=== PATIENT | female | born 1960 | race Caucasian/White ===

== ENCOUNTER 2017-08-13 13:24 | Inpatient (IN) | payer BC ==
[~2017-08-13] VITALS: Ht 170.2 cm; Wt 65.3 kg
[2017-08-13] MEDS ORDERED: SINGULAIR 110 MG/TAB PO (13:44)
[2017-08-13] MEDS ORDERED: DDAVP TAB0.2 MG PO (13:44)
[2017-08-13] MEDS ORDERED: SYMBICORT AER 160 (13:45)
[2017-08-13 14:36] LABS: BASO % 0.6 % (0.0-2.0); EOS # 0.1 (0.0-0.7); EOS % 1.2 % (0-4.0); GRAN # 4.3 (1.4-6.5); GRAN % 62.3 % (42.2-75.2); HEMATOCRIT 39.1 % (37.0-47.0); HEMOGLOBIN 13.3 g/dl (12.5-16.0); LYMPH # 1.9 (1.2-3.4); LYMPH % 27.8 % (20.0-51.0); MEAN CELL VOLUME 95 fl (80.0-100.0); MEAN CORPUSCULAR HEMOGLOBIN 32 pg (27.0-31.0); MEAN CORPUSCULAR HGB CONC 34 g/dl (33.0-37.0); MEAN PLATELET VOLUME 9.6 fl (7.4-10.4); MONO # 0.5 (0.1-0.6); MONO % 7.8 % (1.7-9.3); PLATELET COUNT 254 K/mm3 (130-400); RED BLOOD COUNT 4.11 M/mm3 (4.10-5.30); REDCELL DISTRIBUTION WIDTH-CV 12.7 % (11.5-14.5)
[2017-08-13 14:41] LABS: PROTHROMBIN TIME 11.8 SECONDS (9.7-12.8)
[2017-08-13 14:53] LABS: ALBUMIN 4.1 gm/dL (3.5-5.0); BILIRUBIN,TOTAL 0.8 mg/dL (0.0-1.0); CALCIUM 10.1 mg/dL (8.4-10.2); CREATININE, serum 0.97 mg/dL (0.52-1.25); POTASSIUM 4.1 mmol/L (3.4-5.0); TOTAL PROTEIN 7.7 gm/dL (6.4-8.2)
[2017-08-13 15:08] LABS: TROPONIN-I 0.241 ng/mL (0.000-0.034)
[2017-08-13 17:09] VITALS: BP 115/72; PULSE 78; TEMP 97.8
[2017-08-13 17:17] VITALS: BP 115/72; PULSE 78; TEMP 97.8
[2017-08-13 19:31] VITALS: BP 113/76; PULSE 88; TEMP 98.9
[2017-08-13 23:39] VITALS: BP 94/59; PULSE 61; TEMP 98.8
[2017-08-14] VITALS (7 sets, daily range): BP systolic 93–115; BP diastolic 56–69; PULSE 71–85; TEMP 97.8–98.6
[2017-08-14 07:04] LABS: BASO % 0.6 % (0.0-2.0); EOS # 0.1 (0.0-0.7); EOS % 2.5 % (0-4.0); GRAN # 2.7 (1.4-6.5); HEMOGLOBIN 13.2 g/dl (12.5-16.0); LYMPH % 37.7 % (20.0-51.0); MEAN CELL VOLUME 95 fl (80.0-100.0); MEAN CORPUSCULAR HEMOGLOBIN 32 pg (27.0-31.0); MEAN CORPUSCULAR HGB CONC 34 g/dl (33.0-37.0); MEAN PLATELET VOLUME 9.6 fl (7.4-10.4); MONO # 0.4 (0.1-0.6); PLATELET COUNT 253 K/mm3 (130-400); RED BLOOD COUNT 4.11 M/mm3 (4.10-5.30); REDCELL DISTRIBUTION WIDTH-CV 12.8 % (11.5-14.5)
[2017-08-14 07:17] LABS: CALCIUM 9.4 mg/dL (8.4-10.2); CREATININE, serum 0.67 mg/dL (0.52-1.25); POTASSIUM 4.1 mmol/L (3.4-5.0)
[2017-08-14 07:28] LABS: TROPONIN-I 0.57 ng/mL (0.000-0.034)
[2017-08-14 22:11] LABS: MEAN CELL VOLUME 94 fl (80.0-100.0); MEAN CORPUSCULAR HEMOGLOBIN 32 pg (27.0-31.0); MEAN CORPUSCULAR HGB CONC 34 g/dl (33.0-37.0); MEAN PLATELET VOLUME 9.5 fl (7.4-10.4); PLATELET COUNT 228 K/mm3 (130-400); RED BLOOD COUNT 3.77 M/mm3 (4.10-5.30); REDCELL DISTRIBUTION WIDTH-CV 12.9 % (11.5-14.5)
[2017-08-14 22:20] LABS: HEMATOCRIT 35.5 % (37.0-47.0)
[2017-08-14 22:23] LABS: CALCIUM 9.1 mg/dL (8.4-10.2); CREATININE, serum 0.75 mg/dL (0.52-1.25)
[2017-08-15] VITALS (10 sets, daily range): BP systolic 103–114; BP diastolic 39–81; PULSE 50–77; TEMP 98.3
[2017-08-15 06:27] LABS: BASO # 0.1 (0.0-0.2); BASO % 0.9 % (0.0-2.0); EOS # 0.2 (0.0-0.7); EOS % 2.9 % (0-4.0); GRAN # 2.7 (1.4-6.5); GRAN % 48.3 % (42.2-75.2); HEMATOCRIT 37.4 % (37.0-47.0); HEMOGLOBIN 12.5 g/dl (12.5-16.0); LYMPH # 2.2 (1.2-3.4); LYMPH % 39.5 % (20.0-51.0); MEAN CELL VOLUME 95 fl (80.0-100.0); MEAN CORPUSCULAR HEMOGLOBIN 32 pg (27.0-31.0); MEAN CORPUSCULAR HGB CONC 33 g/dl (33.0-37.0); MEAN PLATELET VOLUME 9.4 fl (7.4-10.4); MONO # 0.5 (0.1-0.6); PLATELET COUNT 237 K/mm3 (130-400); RED BLOOD COUNT 3.92 M/mm3 (4.10-5.30)
[2017-08-15 06:36] LABS: PROTHROMBIN TIME 11.8 SECONDS (9.7-12.8)
[2017-08-15 06:39] LABS: PARTIAL THROMBOPLASTIN TIME 31.5 SECONDS (26.0-37.0)
[2017-08-15 06:40] LABS: CALCIUM 9.2 mg/dL (8.4-10.2); CREATININE, serum 0.7 mg/dL (0.52-1.25); POTASSIUM 3.9 mmol/L (3.4-5.0)
[2017-08-15] MEDS ORDERED: LIPITOR 80MG80 MG PO (12:54)
[2017-08-15] MEDS ORDERED: PLAVIX 75MG TAB75 MG PO (12:54)
[2017-08-15] MEDS ORDERED: IMDUR 30MG30 MG/TAB PO (12:55)
[2017-08-15] MEDS ORDERED: ASPIRIN E.C. 8181 MG PO (12:55)
== END 2017-08-15 14:06 | disposition home or self-care (01) | DRG 282 ==
LOC: COL.ER 13:24 → MEDICAL 17:02
PROVIDERS: Emergency Medicine; Family Medicine; Internal Medicine Interventional Cardiology
PROC: B2111ZZ Fluoroscopy of Multiple Coronary Arteries using Low Osmolar Contrast (ICD-10-PCS; principal; 2017-08-15)
PROC: B2151ZZ Fluoroscopy of Left Heart using Low Osmolar Contrast (ICD-10-PCS; 2017-08-15)
DX: I21.4 Non-ST elevation (NSTEMI) myocardial infarction (principal); R00.2 Palpitations; Z87.891 Personal history of nicotine dependence; I20.1 Angina pectoris with documented spasm
CPT/HCPCS: 99222-AI; 99232-AI; 99239; C1760; C1894; J1650; J2060; J3010; J7030; J7040; Q9967

== ENCOUNTER → 2017-11-17 | Outpatient (CLI) | payer BC ==
[~2017-11-17] MED LIST: ASPIRIN E.C. 8181 MG PO; DDAVP TAB0.2 MG PO; IMDUR 30MG30 MG/TAB PO; LIPITOR 80MG80 MG PO; PLAVIX 75MG TAB75 MG PO; SINGULAIR 110 MG/TAB PO; SYMBICORT AER 160
== END ==
LOC: MC.RAD 08:29
DX: Z12.31 Encounter for screening mammogram for malignant neoplasm of breast (principal)

== ENCOUNTER 2018-10-16 16:33 | Inpatient (IN) | payer BC ==
[2018-10-16] VITALS (182 sets, daily range): BP systolic 100; BP diastolic 80; PULSE 95; TEMP 97.8; O2SAT 93–100
[~2018-10-16] VITALS: Ht 167.6 cm; Wt 55.5 kg
[2018-10-16 16:57] LABS: BASO # 0.1 (0.0-0.2); BASO % 0.6 % (0.0-2.0); EOS # 0.1 (0.0-0.7); EOS % 1.5 % (0-4.0); GRAN # 3.9 (1.4-6.5); GRAN % 47.4 % (42.2-75.2); HEMATOCRIT 38.8 % (37.0-47.0); HEMOGLOBIN 12.9 g/dl (12.5-16.0); LYMPH # 3.5 (1.2-3.4); LYMPH % 41.9 % (20.0-51.0); MEAN CELL VOLUME 94 fl (80.0-100.0); MEAN CORPUSCULAR HEMOGLOBIN 31 pg (27.0-31.0); MEAN CORPUSCULAR HGB CONC 33 g/dl (33.0-37.0); MEAN PLATELET VOLUME 9.7 fl (7.4-10.4); MONO # 0.7 (0.1-0.6); MONO % 8.4 % (1.7-9.3); PLATELET COUNT 216 K/mm3 (130-400); RED BLOOD COUNT 4.12 M/mm3 (4.10-5.30); REDCELL DISTRIBUTION WIDTH-CV 12.8 % (11.5-14.5)
[2018-10-16 17:02] LABS: INR 0.9 (0.8-3.0); PROTHROMBIN TIME 10.9 SECONDS (9.7-12.8)
[2018-10-16 17:05] LABS: PARTIAL THROMBOPLASTIN TIME 28.6 SECONDS (26.0-37.0)
[2018-10-16 17:07] LABS: ALANINE AMINOTRANSFERASE 31 U/L (9-52); ALBUMIN 4.3 gm/dL (3.5-5.0); ALKALINE PHOSPHATASE 95 U/L (50-136); ANION GAP 12 mmol/L (7-16); AST,SGOT 35 U/L (15-37); BILIRUBIN,TOTAL 0.9 mg/dL (0.0-1.0); BLOOD UREA NITROGEN 30 mg/dL (7-17); CALCIUM 9.8 mg/dL (8.4-10.2); CARBON DIOXIDE 21 mmol/L (22-30); CHLORIDE 104 mmol/L (98-107); CREATININE, serum 0.94 (0.52-1.25); GLUCOSE 90 mg/dL (74-106); POTASSIUM 3.7 mmol/L (3.4-5.0); SODIUM 138 mmol/L (137-145); TOTAL PROTEIN 7.3 gm/dL (6.4-8.2)
[2018-10-16 17:43] LABS: TROPONIN-I < 0.012 ng/mL (0.000-0.035)
[2018-10-16] MEDS ORDERED: LIPITOR 80MG80 MG PO (18:45)
[2018-10-16] MEDS ORDERED: ISORDIL TITRADO30 MG PO (18:46)
[2018-10-16] MEDS ORDERED: SINGULAIR 110 MG/TAB PO (18:46)
[2018-10-16] MEDS ORDERED: AMBIEN 5MG TABLE5 MG PO (18:46)
[2018-10-16] MEDS ORDERED: INDERAL 20MG20 MG PO (18:47)
[2018-10-16] MEDS ORDERED: NITROSTAT0.4 MG/TAB SL (18:47)
[2018-10-16 18:54] LABS: MAGNESIUM 1.9 mg/dL (1.6-2.3)
[2018-10-16 19:25] LABS: TSH w REFLEX 1.69 uIU/mL (0.465-4.680)
--- NOTE | 2018-10-16 19:36 | NUR ---
Arrived to the unit via stretcher. Able to self transfer to icu bed without difficulty. Attached to all monitors. HR 90's and A-fib. Currently on cardizem drip at 5 mg/hr. During assessment patient rolled onto side. After rolling patient stated she started to see some "black spots". Denied any dizziness. VS within normal limits. Patient stated it was possibly due to being hungry and not eating since early this morning. Snack provided and hosptitalist notified.
[2018-10-17] VITALS (338 sets, daily range): BP systolic 101–113; BP diastolic 51–81; PULSE 58–98; TEMP 97.6–98.4; O2SAT 84–100
--- NOTE | 2018-10-17 01:41 | NUR ---
HR noted to be mid 50's to 60's while sleeping. Updated hospitalist via telephone. Can hold drip for HR less than 60 and drip placed on hold at this time. Observed patient getting up from bed unassisted. Re-inforced eduction regarding calling nurse prior to getting up unassisted due to fall risk from monitor cords and IV tubing. Patient verbalized understanding. Patient denies any chest pain or dizziness. Will continue to monitor.
[2018-10-17 01:46] LABS: PH 5 (5-8); SQUAMOUS EPITHELIAL 0-2 /hpf; URINE APPEARANCE Clear; URINE BACTERIA None Seen /hpf; URINE BILIRUBIN Negative (NEGATIVE); URINE BLOOD Negative (NEGATIVE); URINE COLOR Straw; URINE GLUCOSE Negative (NEGATIVE); URINE KETONE Negative (NEGATIVE); URINE LEUKOCYTE ESTERASE Negative (NEGATIVE); URINE NITRATE Negative (NEGATIVE); URINE PROTEIN(semi-quant) Negative (NEGATIVE); URINE RBC 0-2 /hpf; URINE UROBILINOGEN Negative (NEGATIVE)
[2018-10-17 01:48] LABS: COLLECTION METHOD CLEAN CATCH
--- NOTE | 2018-10-17 02:29 | NUR ---
Patient observed attempting to stand up from bed unassisted again. Reminded patient again to call prior to getting up from bed. Gait is steady, however patient's feet were tangled in cords when this nurse entered the room. Patient is not confused and is alert and oriented. Assisted onto commode and back to bed. Non-slip socks are utilized. Bed alarm set.
--- NOTE | 2018-10-17 05:30 | NUR ---
Assisted up to commode. Upon returning to bed reported feeling of palpitations, denies any other symptoms along with palpitations. HR 80's and afib, BP stable. Will continue to monitor.
[2018-10-17 05:33] LABS: BASO % 0.5 % (0.0-2.0); EOS # 0.1 (0.0-0.7); EOS % 1.6 % (0-4.0); GRAN # 3.1 (1.4-6.5); GRAN % 49.3 % (42.2-75.2); HEMOGLOBIN 11.6 g/dl (12.5-16.0); LYMPH # 2.5 (1.2-3.4); LYMPH % 40.2 % (20.0-51.0); MEAN CELL VOLUME 96 fl (80.0-100.0); MEAN CORPUSCULAR HEMOGLOBIN 32 pg (27.0-31.0); MEAN CORPUSCULAR HGB CONC 33 g/dl (33.0-37.0); MEAN PLATELET VOLUME 9.9 fl (7.4-10.4); MONO # 0.5 (0.1-0.6); MONO % 8.2 % (1.7-9.3); PLATELET COUNT 181 K/mm3 (130-400); RED BLOOD COUNT 3.67 M/mm3 (4.10-5.30); REDCELL DISTRIBUTION WIDTH-CV 13.1 % (11.5-14.5)
[2018-10-17 05:35] LABS: HEMATOCRIT 35.1 % (37.0-47.0)
[2018-10-17 05:43] LABS: CALCIUM 8.5 mg/dL (8.4-10.2); CREATININE, serum 0.56 (0.52-1.25); POTASSIUM 3.8 mmol/L (3.4-5.0)
[2018-10-17 05:55] LABS: TROPONIN-I 0.095 ng/mL (0.000-0.035)
--- NOTE | 2018-10-17 07:15 | NUR ---
Bedside report received from Zahida Shine on hold at this time. HR 70-80 when at rest. Patient denies complaints of chest pain or SOA at this time. Call light at side.
--- NOTE | 2018-10-17 07:15 | NUR ---
Bedside report given to RADHA Gar. Patient care transfered.
--- NOTE | 2018-10-17 11:21 | NUR ---
SW met with patient and to discuss discharge planning. Patient lives independently in [facility] with her Poli. 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 Patients PCP is Dr Glez and [facility]. Patient does not have any discharge needs at this time however sw will continue to follow.
--- NOTE | 2018-10-17 12:56 | NUR ---
Dr. Laurent here for Cards consult. Orders recieved. Diet orders changed and patient instructed how to order, states understanding.
--- NOTE | 2018-10-17 13:42 | NUR ---
Report given to Maria D GARCIA
--- NOTE | 2018-10-17 13:45 | NUR ---
Report recieved from RADHA Gar. Patient care assumed and she is transferred via WC with all belongings to medical room 357. Patient ambulates with steady gait for transfers and situates self in bed. Call light is provided.
--- NOTE | 2018-10-17 20:10 | NUR ---
Shift assessment complete. Patient in bed, awake. Denies pain. Patient anxious about being "in the fib" per pt statement. Emotional support given. HR 97 on tele, afib. Denies further needs at this time. Will continue to monitor.
--- NOTE | 2018-10-18 03:37 | NUR ---
Patient in bed, sleeping. Awakens to name. Denies pain. Denies further needs at this time. Will continue to monitor.
[2018-10-18 04:24] VITALS: BP 117/82; PULSE 77; TEMP 98.5
[2018-10-18 06:57] LABS: CALCIUM 9.4 mg/dL (8.4-10.2); CREATININE, serum 0.61 (0.52-1.25); POTASSIUM 4.1 mmol/L (3.4-5.0)
--- NOTE | 2018-10-18 07:05 | NUR ---
Report recieved from Lulu GARCIA. Patient resting in bed at this time.
[2018-10-18 07:36] VITALS: BP 111/85; PULSE 71; TEMP 98.4
--- NOTE | 2018-10-18 11:16 | NUR ---
Patient up and showered. IV removed and tele monitor off. Waiting on discharge orders, will review orders when available.
[2018-10-18 11:32] VITALS: BP 102/61; BP 91/54; PULSE 93; TEMP 97.7
[2018-10-18] MEDS ORDERED: LOPRESSOR 225 MG/TAB PO (11:40)
[2018-10-18] MEDS ORDERED: LASIX 20MG TABL20 MG PO (11:41)
[2018-10-18] MEDS ORDERED: ASPIRIN E.C. 8181 MG PO (11:41)
--- NOTE | 2018-10-18 12:02 | NUR ---
Initial visit; Patient thanked [employer] for looking in on her, letting her know of the availability of spiritual care at our hospital.
--- NOTE | 2018-10-18 12:25 | NUR ---
Patient standing at doorway of room, asks nurse what's taking so long. Explained to patient that hospital discharges take some time, papers are printed and ready to review. 1235 Called into room. Patient complains of chest pain that came on suddenly and is resolving. Very anxious, states "I want to get out of here." Denies SOB, dizziness. 1245 Reviewed discharge instructions, medication list, and follow up appointments. Voices understanding, questions answered. Discharged to home with driving.
== END 2018-10-18 12:45 | disposition hospice, home (50) | DRG 281 ==
LOC: COL.ER 16:33 → ICU 18:31 → MEDICAL 10-17 13:54
PROVIDERS: Family Medicine; Nurse Practitioner Family; ADMIT Internal Medicine
DX: I48.91 Unspecified atrial fibrillation (principal); I21.A1 Myocardial infarction type 2; I20.1 Angina pectoris with documented spasm; I25.2 Old myocardial infarction; I08.1 Rheumatic disorders of both mitral and tricuspid valves; I95.9 Hypotension, unspecified; R35.0 Frequency of micturition; Z87.891 Personal history of nicotine dependence; Z82.49 Family history of ischemic heart disease and other diseases of the circulatory system
CPT/HCPCS: 99222-AI; 99239; J1650; J7030

== ENCOUNTER 2018-12-10 17:51 | Emergency (ER) | payer BC ==
[~2018-12-10] VITALS: Ht 167.6 cm; Wt 62.7 kg
[~2018-12-10 17:51] MED LIST changes: +AMBIEN 5MG TABLE5 MG PO; +INDERAL 20MG20 MG PO; +ISORDIL TITRADO30 MG PO; +LASIX 20MG TABL20 MG PO; +LOPRESSOR 225 MG/TAB PO; +NITROSTAT0.4 MG/TAB SL
[2018-12-10 17:59] VITALS: TEMP 97.6
[2018-12-10 18:27] LABS: BASO % 0.3 % (0.0-2.0); EOS # 0.1 (0.0-0.7); EOS % 1.3 % (0-4.0); GRAN # 3.5 (1.4-6.5); GRAN % 50.9 % (42.2-75.2); HEMATOCRIT 38.7 % (37.0-47.0); HEMOGLOBIN 13.1 g/dl (12.5-16.0); LYMPH # 2.7 (1.2-3.4); LYMPH % 39.8 % (20.0-51.0); MEAN CELL VOLUME 94 fl (80.0-100.0); MEAN CORPUSCULAR HEMOGLOBIN 32 pg (27.0-31.0); MEAN CORPUSCULAR HGB CONC 34 g/dl (33.0-37.0); MEAN PLATELET VOLUME 9.6 fl (7.4-10.4); MONO # 0.5 (0.1-0.6); MONO % 7.6 % (1.7-9.3); PLATELET COUNT 238 K/mm3 (130-400); REDCELL DISTRIBUTION WIDTH-CV 12.8 % (11.5-14.5)
[2018-12-10 18:36] LABS: ALANINE AMINOTRANSFERASE 30 U/L (9-52); ALBUMIN 4.5 gm/dL (3.5-5.0); ALKALINE PHOSPHATASE 83 U/L (50-136); ANION GAP 8 mmol/L (7-16); AST,SGOT 37 U/L (15-37); BILIRUBIN,TOTAL 0.9 mg/dL (0.0-1.0); BLOOD UREA NITROGEN 22 mg/dL (7-17); CALCIUM 9.6 mg/dL (8.4-10.2); CARBON DIOXIDE 25 mmol/L (22-30); CHLORIDE 105 mmol/L (98-107); CREATININE, serum 0.71 (0.52-1.25); GLUCOSE 94 mg/dL (74-106); SODIUM 138 mmol/L (137-145); TOTAL PROTEIN 7.8 gm/dL (6.4-8.2)
[2018-12-10 18:53] LABS: TROPONIN-I < 0.012 ng/mL (0.000-0.035)
[2018-12-10 18:54] LABS: COLLECTION METHOD CLEAN CATCH
[2018-12-10 19:05] LABS: MUCOUS Present /lpf; PH 7 (5-8); SQUAMOUS EPITHELIAL 0-2 /hpf; URINE APPEARANCE Clear; URINE BACTERIA Rare /hpf; URINE BILIRUBIN Negative (NEGATIVE); URINE BLOOD Negative (NEGATIVE); URINE COLOR Yellow; URINE GLUCOSE Negative (NEGATIVE); URINE KETONE Negative (NEGATIVE); URINE LEUKOCYTE ESTERASE 1+ (NEGATIVE); URINE NITRATE Negative (NEGATIVE); URINE PROTEIN(semi-quant) Negative (NEGATIVE); URINE RBC 0-2 /hpf; URINE UROBILINOGEN Negative (NEGATIVE)
[2018-12-10] MEDS ORDERED: TOPROL XL 25MG25 MG PO (19:19)
[2018-12-10 19:58] VITALS: BP 114/78; PULSE 74
== END 2018-12-10 20:09 | disposition home or self-care (01) ==
LOC: COL.ER 17:51
PROVIDERS: Nurse Practitioner Primary Care
DX: I48.91 Unspecified atrial fibrillation (principal); Z79.01 Long term (current) use of anticoagulants; Z98.890 Other specified postprocedural states; Z79.82 Long term (current) use of aspirin
CPT/HCPCS: J7030

== ENCOUNTER → 2019-04-03 | Outpatient (CLI) | payer BC ==
[~2019-04-03] MED LIST changes: +TOPROL XL 25MG25 MG PO
== END ==
LOC: MC.RAD 01-10 13:45
DX: Z12.31 Encounter for screening mammogram for malignant neoplasm of breast (principal); N63.10 Unspecified lump in the right breast, unspecified quadrant

== ENCOUNTER → 2019-04-12 | Outpatient (CLI) | payer BC | LOC: MC.RAD 04-06 13:00 | DX: N63.10 Unspecified lump in the right breast, unspecified quadrant (principal) ==

== ENCOUNTER → 2019-04-16 | Outpatient (CLI) | payer BC | LOC: MC.RAD 10:00 | DX: Z12.31 Encounter for screening mammogram for malignant neoplasm of breast (principal); N60.01 Solitary cyst of right breast; N64.9 Disorder of breast, unspecified ==

== ENCOUNTER 2019-05-22 22:01 | Inpatient (IN) | payer BC ==
[~2019-05-22] VITALS: Ht 167.6 cm; Wt 68.4 kg
[2019-05-22 22:48] LABS: BASO % 0.2 % (0.0-2.0); EOS % 0.1 % (0-4.0); GRAN # 8.1 (1.4-6.5); GRAN % 78.6 % (42.2-75.2); HEMATOCRIT 38.7 % (37.0-47.0); HEMOGLOBIN 12.8 g/dl (12.5-16.0); LYMPH # 1.2 (1.2-3.4); LYMPH % 11.7 % (20.0-51.0); MEAN CELL VOLUME 94 fl (80.0-100.0); MEAN CORPUSCULAR HEMOGLOBIN 31 pg (27.0-31.0); MEAN CORPUSCULAR HGB CONC 33 g/dl (33.0-37.0); MEAN PLATELET VOLUME 9.7 fl (7.4-10.4); MONO # 0.9 (0.1-0.6); PLATELET COUNT 158 K/mm3 (130-400); RED BLOOD COUNT 4.12 M/mm3 (4.10-5.30); REDCELL DISTRIBUTION WIDTH-CV 13.4 % (11.5-14.5)
[2019-05-22 22:57] LABS: ALBUMIN 4.2 gm/dL (3.5-5.0); BILIRUBIN,TOTAL 1.3 mg/dL (0.0-1.0); CALCIUM 9.3 mg/dL (8.4-10.2); CREATININE, serum 1.01 (0.52-1.25); POTASSIUM 3.6 mmol/L (3.4-5.0); TOTAL PROTEIN 7.6 gm/dL (6.4-8.2)
[2019-05-22 23:16] LABS: C-REACTIVE PROTEIN 8.1 mg/dL (0.0-0.9)
[2019-05-22 23:38] LABS: TROPONIN-I < 0.012 ng/mL (0.000-0.035)
[2019-05-22] MEDS ORDERED: DITROPAN XL15 MG PO (23:49)
[2019-05-23] VITALS (189 sets, daily range): BP systolic 88–138; BP diastolic 53–71; PULSE 68–180; TEMP 98.1–103.2; O2SAT 91–100
[2019-05-23] LABS: COLLECTION METHOD CLEAN CATCH
[2019-05-23 00:27] LABS: MUCOUS Present /lpf; PH 5 (5-8); SQUAMOUS EPITHELIAL 0-2 /hpf; URINE APPEARANCE Cloudy; URINE BACTERIA Moderate /hpf; URINE BILIRUBIN Negative (NEGATIVE); URINE BLOOD 2+ (NEGATIVE); URINE COLOR Yellow; URINE GLUCOSE Negative (NEGATIVE); URINE KETONE Trace (NEGATIVE); URINE LEUKOCYTE ESTERASE 3+ (NEGATIVE); URINE NITRATE Positive (NEGATIVE); URINE PROTEIN(semi-quant) 2+ (NEGATIVE); URINE RBC 20-50 /hpf; URINE UROBILINOGEN Negative (NEGATIVE)
--- NOTE | 2019-05-23 02:00 | NUR ---
Arrived from ED. Assessment complete. Lungs clear. Heart sounds normal. Bowels active x4. Pulses strong throughout. No edema noted. Patient alert and orientated. Tremor present. Weak with ambulation to toilet. Denies pain. Orientated to medical floor and room. All questions answered. MICHELLE Adams in to see patient. Denies needs at this time. Call light in reach.
--- NOTE | 2019-05-23 04:17 | NUR ---
Patient temp 103.2. Spoke with MICHELLE Adams. Obtained order for tylenol 650mg Q4H PRN and blood cultures.
--- NOTE | 2019-05-23 06:29 | NUR ---
Patient had fever during night was given tylenol, covered removed, cool wash cloths placed on head and neck. Temperature gradually decreasing. Otherwise uneventful night. Resting in bed this AM.
--- NOTE | 2019-05-23 06:54 | NUR ---
Report given to RADHA Quintero
[2019-05-23 07:52] LABS: CALCIUM 8.3 mg/dL (8.4-10.2); CREATININE, serum 0.67 (0.52-1.25); POTASSIUM 3.9 mmol/L (3.4-5.0)
--- NOTE | 2019-05-23 09:47 | NUR ---
Pt awake and alert this morning, Pt had a bout of vomiting this AM, medications given for relief, shift assessments complete, left Pt call light in reach, bed in lowest position.
--- NOTE | 2019-05-23 10:14 | NUR ---
Pt sitting up in the bed upon entry, no C/o pain at this time, shift assessments complete, left Pt call light in reach, bed in lowest position.
--- NOTE | 2019-05-23 11:22 | NUR ---
LAN met with the patient to discuss discharge plan. The patient lives in [place] with her , Poli (ph#[phone]). She reports independence with ADLs and does not have any DME. The patient's PCP is Dr. Alverto Glez and she receives her medications at [facility]. She reports no difficulties obtaining her meds. The patient does not advanced directives in EMR, but she states that she does have them completed and that her is her DPOA-HC. The patient plans to return home with her upon discharge. No additional needs at this time.
--- NOTE | 2019-05-23 18:30 | NUR ---
RN CAME OUT OF ROOM REPORTING HIS PATIENT HAS TACHYCARDIA IN THE 180'S. [employer] CALLED AND AT BEDSIDE. RN CALLING PHYSICIAN. I STARTED 1000CC NS FLUID BOLUS. PATIENT TACHYCARDIC IN THE 180'S, HYPTENSIVE IN THE 70-80'S SYSTOLIC AND WITH AN ORAL TEMP OF 103. STARTED 1000CC NS FLUID BOLUS. GAVE 1000MG OF TYLENOL. LOWERED HEAD OF BED. PATIENT GOING DOWN TO ICU. STAT EKG. PATIENT HAS A HX OF A-FIB REPORTED BY THE RN. [employer] CALLING CARDIOLOGY. PATIENT GOING TO ICU 2. NOTIFIED.
[2019-05-23 18:59] LABS: BASO % 0.2 % (0.0-2.0); GRAN # 7.3 (1.4-6.5); GRAN % 74.1 % (42.2-75.2); HEMATOCRIT 35.6 % (37.0-47.0); HEMOGLOBIN 11.6 g/dl (12.5-16.0); LYMPH # 1.6 (1.2-3.4); MEAN CELL VOLUME 96 fl (80.0-100.0); MEAN CORPUSCULAR HEMOGLOBIN 31 pg (27.0-31.0); MEAN CORPUSCULAR HGB CONC 33 g/dl (33.0-37.0); MEAN PLATELET VOLUME 9.6 fl (7.4-10.4); MONO # 0.9 (0.1-0.6); MONO % 9.4 % (1.7-9.3); PLATELET COUNT 136 K/mm3 (130-400); RED BLOOD COUNT 3.72 M/mm3 (4.10-5.30); REDCELL DISTRIBUTION WIDTH-CV 13.6 % (11.5-14.5)
--- NOTE | 2019-05-23 19:03 | NUR ---
RECEIVED REPORT FROM RADHA GALARZA. RN X3 AND ALMA DAWKINS AND DR WEBER AT BEDSIDE. NOTED PT'S HR 180s. ESMOLOL BOLUS GIVEN AND HR DECREASED TO 168. ADENOSINE GIVEN HR DROPPED AND BACK TO 103. SEE GTT TITRATIONS FOR ESMOLOL. PT ORIGINALLY ON 5L VIA OXYMASK BUT IS TAKEN OFF AT 1914 BECAUSE PT STATES SHE IS FEELING BETTER AND NO LONGER SHOB, POX 99%. CALL LIGHT WITHIN REACH.
[2019-05-23 19:09] LABS: ALBUMIN 3.3 gm/dL (3.5-5.0); BILIRUBIN,TOTAL 0.9 mg/dL (0.0-1.0); CALCIUM 8.4 mg/dL (8.4-10.2); CREATININE, serum 0.72 (0.52-1.25); POTASSIUM 3.9 mmol/L (3.4-5.0); TOTAL PROTEIN 6.4 gm/dL (6.4-8.2)
[2019-05-23 19:16] LABS: MAGNESIUM 1.7 mg/dL (1.6-2.3)
[2019-05-23 19:31] LABS: TROPONIN-I 0.047 ng/mL (0.000-0.035)
--- NOTE | 2019-05-23 19:50 | NUR ---
ALMA DAWKINS CALLED BACK TO BEDSIDE. PT'S HR 180s AND PT STATES SHE CAN FEEL HER HEART RACING. , DEMETRIA AT BEDSIDE AT THIS TIME. DR WEBER CONSULTED BY ALMA DAWKINS. SEE MAR FOR MEDICATIONS GIVEN. SEE GTT TITRATIONS FOR AMIODARONE GTT STARTED. PT PLACED ON 5L OXYMASK AT THIS TIME. POX NOTED TO DECREASE TO 90% AND PT APPEARS EXHAUSTED. WILL MONITOR CLOSELY. HR BACK DOWN TO 90-LOW 100s. ORDERS TO KEEP PT NPO AT THIS TIME AND DO NOT TITRATE AMIODARONE GTT.
--- NOTE | 2019-05-23 21:00 | NUR ---
NOTIFIED ALMA DAWKINS OF TROPONIN. NO NEW ORDERS.
--- NOTE | 2019-05-23 21:45 | NUR ---
PT ON RA FOR 10MINS, NOTED POX TO DROP TO 89%. PLACED ON 2L VIA NC. PT STATES SHE IS VERY TIRED NOW. CALL LIGHT WITHIN REACH. REMAINS AT BEDSIDE.
[2019-05-24] VITALS (517 sets, daily range): BP systolic 86–135; BP diastolic 56–74; PULSE 69–91; TEMP 97.6–99.1; O2SAT 86–100
--- NOTE | 2019-05-24 01:30 | NUR ---
SPOKE TO DR WEBER ABOUT PT'S CURRENT HR 70s AND SBP IN THE 80s. PHYSICIAN STATES IT IS OK TO TAKE OF ESMOLOL AT THIS TIME BUT IF PT'S HR GETS ABOVE 100 AGAIN TO PUT ESMOLOL BACK ON PT. ALMA DAWKINS NOTIFIED.
--- NOTE | 2019-05-24 02:30 | NUR ---
PT REQUESTS OXYMASK TO COME OFF. 30 MINS LATER, POX CONTINUING TO MAINTAIN >95% ON RA AT THIS TIME. WILL CONTINUE TO MONITOR CLOSELY. PT ASSISTED TO BSC. DENIES ANY DIZZNIESS OR SHOB UPON STANDING. ASSISTED BACK TO BED WITH XQ ASSIST. CALL LIGHT AND PHONE WITHIN REACH.
[2019-05-24 06:24] LABS: BASO % 0.2 % (0.0-2.0); EOS % 0.4 % (0-4.0); GRAN % 70.2 % (42.2-75.2); HEMOGLOBIN 10.9 g/dl (12.5-16.0); LYMPH % 19.5 % (20.0-51.0); MEAN CELL VOLUME 96 fl (80.0-100.0); MEAN CORPUSCULAR HEMOGLOBIN 31 pg (27.0-31.0); MEAN CORPUSCULAR HGB CONC 32 g/dl (33.0-37.0); MEAN PLATELET VOLUME 10.5 fl (7.4-10.4); MONO # 0.9 (0.1-0.6); MONO % 9.3 % (1.7-9.3); PLATELET COUNT 134 K/mm3 (130-400); RED BLOOD COUNT 3.49 M/mm3 (4.10-5.30); REDCELL DISTRIBUTION WIDTH-CV 13.9 % (11.5-14.5)
[2019-05-24 06:31] LABS: HEMATOCRIT 33.6 % (37.0-47.0)
[2019-05-24 06:38] LABS: CALCIUM 8.3 mg/dL (8.4-10.2); CREATININE, serum 0.66 (0.52-1.25); POTASSIUM 3.9 mmol/L (3.4-5.0); TOTAL PROTEIN 6.1 gm/dL (6.4-8.2)
--- NOTE | 2019-05-24 08:00 | NUR ---
Shift assessment complete at this time. Plan of care reviewed at bedside with patient. Additional time taken to address any other needs or concerns. Vitals stable at this time. Pt denies pain or any other discomforts. Bed in low position, call light within reach, will continue to monitor.
--- NOTE | 2019-05-24 12:00 | NUR ---
Pt resting comfortably in bed. Denies pain or any other discomforts. Vitals stable at this time. Bed in low position, call light within reach, will continue to monitor.
--- NOTE | 2019-05-24 15:27 | NUR ---
GOSPEL SINGER student met with the patient to complete initial intake. The patient lives in [place] with her , Poli. The patient denies DME usage and reports independence with ADLs. The patient's PCP is Dr. Glez and patient receives medications from [facility] with no difficulties. The patient does not have advanced directives in the EMR and was not interested in a DPOA-HC form. There are no anticipated needs at discharge but will monitor.
--- NOTE | 2019-05-24 16:00 | NUR ---
Pt resting comfortably in bed. Denies pain or any other discomfort. Vitals stable at this time. Bed in low position, call light within reach, will continue to monitor.
--- NOTE | 2019-05-24 19:32 | NUR ---
Bedside report given to RADHA Quintero.
[2019-05-25] VITALS (135 sets, daily range): BP systolic 100–113; BP diastolic 59–71; PULSE 64–93; TEMP 97.4–98.2; O2SAT 68–100
[2019-05-25 05:08] LABS: BASO % 0.3 % (0.0-2.0); EOS # 0.1 (0.0-0.7); EOS % 1.3 % (0-4.0); GRAN # 4.8 (1.4-6.5); GRAN % 61.8 % (42.2-75.2); HEMOGLOBIN 10.7 g/dl (12.5-16.0); LYMPH % 25.8 % (20.0-51.0); MEAN CELL VOLUME 93 fl (80.0-100.0); MEAN CORPUSCULAR HEMOGLOBIN 31 pg (27.0-31.0); MEAN CORPUSCULAR HGB CONC 33 g/dl (33.0-37.0); MONO # 0.8 (0.1-0.6); MONO % 10.4 % (1.7-9.3); PLATELET COUNT 160 K/mm3 (130-400); RED BLOOD COUNT 3.47 M/mm3 (4.10-5.30); REDCELL DISTRIBUTION WIDTH-CV 13.7 % (11.5-14.5)
[2019-05-25 05:09] LABS: HEMATOCRIT 32.1 % (37.0-47.0)
[2019-05-25 05:23] LABS: BILIRUBIN,TOTAL 0.8 mg/dL (0.0-1.0); CALCIUM 8.4 mg/dL (8.4-10.2); CREATININE, serum 0.65 (0.52-1.25); MAGNESIUM 1.9 mg/dL (1.6-2.3); POTASSIUM 3.4 mmol/L (3.4-5.0); TOTAL PROTEIN 6.1 gm/dL (6.4-8.2)
--- NOTE | 2019-05-25 07:30 | NUR ---
Bedside report received from RADHA milian.
--- NOTE | 2019-05-25 08:00 | NUR ---
Assessment complete. PT A/O x4. Pt c/o pain on right FA by IV site. right FA red, edema present. right FA dc'd. Warm towel placed on FA. Pt states warm towel gives some pain relief. Pt up to bathroom with stand by assist. Steady gait. Pt voided and assisted back to bed. VSS. Call light in reach.
--- NOTE | 2019-05-25 09:32 | NUR ---
Physical therapy at bedside with pt.
--- NOTE | 2019-05-25 11:20 | NUR ---
Patient arrived to room 306 from ICU at this time, she is alert/oriented, vital signs stable, denies pain or discomfort, transfered to the bed fro wheelchair with stand by assist only, denies needs
--- NOTE | 2019-05-25 11:24 | NUR ---
phone report given to Ryan at 1106. Pt transferred to room 306 via wheelchair. Pt transferred to bed with x1 assist. Steady gait. Ryan in room and updated on pt status.
--- NOTE | 2019-05-25 18:50 | NUR ---
PT HAD UNEVENTFUL DAY. PT VOICES SHES READY TO DISCHARGE AND IS HOPEFULL TO GO HOME TOMORROW. NO ISSUES OR CONSERNS VOICED. NO NEEDS VOICED.
--- NOTE | 2019-05-25 19:07 | NUR ---
Received report from Edwige. Seen patient awake, sitting on bed. With INT on left forearm. On tele. Denies any pain. Will continue to monitor.
[2019-05-26 00:02] VITALS: BP 113/77; PULSE 85; TEMP 98.4
[2019-05-26 04:19] VITALS: BP 125/64; PULSE 70; TEMP 98.4
--- NOTE | 2019-05-26 05:35 | NUR ---
Patient has complains of right hand pain due to previous IV site and Tylenol PRN was given. She verbalizes she wants to be discharged today. No other complains made. Will endorse to day shift nurse.
[2019-05-26 07:34] LABS: BASO % 0.4 % (0.0-2.0); EOS # 0.1 (0.0-0.7); EOS % 2.5 % (0-4.0); GRAN # 3.4 (1.4-6.5); GRAN % 61.3 % (42.2-75.2); HEMOGLOBIN 11.1 g/dl (12.5-16.0); LYMPH # 1.5 (1.2-3.4); LYMPH % 26.9 % (20.0-51.0); MEAN CELL VOLUME 95 fl (80.0-100.0); MEAN CORPUSCULAR HEMOGLOBIN 31 pg (27.0-31.0); MEAN CORPUSCULAR HGB CONC 33 g/dl (33.0-37.0); MEAN PLATELET VOLUME 10.9 fl (7.4-10.4); MONO # 0.5 (0.1-0.6); MONO % 8.7 % (1.7-9.3); PLATELET COUNT 190 K/mm3 (130-400); RED BLOOD COUNT 3.57 M/mm3 (4.10-5.30); REDCELL DISTRIBUTION WIDTH-CV 13.8 % (11.5-14.5)
[2019-05-26 07:38] LABS: ALBUMIN 3.2 gm/dL (3.5-5.0); BILIRUBIN,TOTAL 0.6 mg/dL (0.0-1.0); CALCIUM 8.9 mg/dL (8.4-10.2); CREATININE, serum 0.64 (0.52-1.25); TOTAL PROTEIN 6.5 gm/dL (6.4-8.2)
[2019-05-26 07:39] VITALS: BP 121/74; PULSE 70; TEMP 97.3
[2019-05-26 12:52] VITALS: BP 114/63; PULSE 77; TEMP 97.6
--- NOTE | 2019-05-26 13:00 | NUR ---
assessment this morning, was insignificant. no abnormal findings expect on her forearm where an IV went bad. patient is ready to go home. she has just been in her room keeping herself entertained because of being ready to go home. patient stated that she does not want any of her lunch. family in room with patient at this time.
[2019-05-26] MEDS ORDERED: CORDARONE200 MG/TAB PO (13:28)
[2019-05-26] MEDS ORDERED: PACERONE400 MG PO (13:29)
[2019-05-26] MEDS ORDERED: OMNICEF 300MG300 MG PO (13:31)
--- NOTE | 2019-05-26 14:49 | NUR ---
WENT OVER DISCHARGE INSTRUCTIONS WITH PATIENT. SHE IS UNDERSTANDING OF THE INSTRUCTIONS AT THIS TIME. IV WAS DISCONTINUED AND TIP WAS INTACT. TELEY WAS RETURNED TO THE DESK. PATIENT WAS GETTING PERSONAL CLOTHES ON AND TOW MOTOR DRIVER WAS GETTING READY TO TAKE HER OUTFRONT.
== END 2019-05-26 14:50 | disposition home or self-care (01) | DRG 872 ==
LOC: COL.ER 22:01 → MEDICAL 05-23 00:41 → ICU 05-23 19:42 → IMCU 05-25 06:53 → MEDICAL 05-25 12:42
PROVIDERS: Emergency Medicine; Family Medicine; Nurse Practitioner Family; Physician Assistant; ADMIT Student in an Organized Health Care Education/Training Program
DX: A41.9 Sepsis, unspecified organism (principal); I38 Endocarditis, valve unspecified; N39.0 Urinary tract infection, site not specified; I47.1 Supraventricular tachycardia; I25.10 Atherosclerotic heart disease of native coronary artery without angina pectoris; E83.42 Hypomagnesemia; I48.91 Unspecified atrial fibrillation; R25.1 Tremor, unspecified; I25.2 Old myocardial infarction; R55 Syncope and collapse; Z79.82 Long term (current) use of aspirin; Z87.891 Personal history of nicotine dependence
CPT/HCPCS: 99222-AI; 99232-AI; 99233-AI; 99239; A4216; A9284; J0153; J0282; J0692; J0696; J1650; J3475; J7030; J7060; J7120

== ENCOUNTER → 2020-04-15 | Outpatient (CLI) | payer BC ==
[~2020-04-15] MED LIST changes: +CORDARONE200 MG/TAB PO; +DITROPAN XL15 MG PO; +OMNICEF 300MG300 MG PO; +PACERONE400 MG PO
== END ==
LOC: MC.RAD 13:59
DX: Z12.31 Encounter for screening mammogram for malignant neoplasm of breast (principal); N60.01 Solitary cyst of right breast

== ENCOUNTER → 2023-04-14 | Outpatient (CLI) | payer OTHER | LOC: MC.RAD 15:25 | DX: Z12.31 Encounter for screening mammogram for malignant neoplasm of breast (principal) ==